=== PATIENT | female | born 1990 | race Caucasian/White ===

== ENCOUNTER → 2021-01-07 10:48 | Outpatient (CLI) | payer BC, SELFPAY ==
--- NOTE | ~2021-01-07 | US_ITS ---
EXAMINATION: US transvaginal DATE: 01/07/2021 11:11 INDICATION: Pelvic and right lower quadrant abdominal pain Comparison:No prior studies for comparison. TECHNIQUE: Multiple transabdominal and endovaginal sonographic images of the pelvis performed. FINDINGS: The uterus measures 7.6 x 3.5 x 5 cm. There is an IUD present in the endometrium. The endom etrial complex measures 5 mm. The right ovary measures 2.5 x 1.8 x 3.2 cm and the left ovary measures 3.2 x 2.1 x 2.5 cm. There ar e small follicles in each ovary.Normal doppler signal in both ovaries. There is no free fluid in the pelvis. There are no abnormal masses seen on either side. IMPRESSION: 1. Normal pelvic ultrasound. Reviewed, dictated and finalized at location B. SUPPORT CONSULTANT
== END ==
PROVIDERS: Visit Provider Nurse Practitioner
DX: R10.2 Pelvic and perineal pain (principal); Z97.5 Presence of (intrauterine) contraceptive device
CPT/HCPCS: 76830

== ENCOUNTER 2022-09-11 08:25 | Emergency (ER) | payer BC, SELFPAY ==
--- NOTE | 2022-09-11 08:44 | ED.URI ---
HPI - URI/Sore Throat General Chief Complaint: Upper Respiratory Infection Stated Complaint: nasal congestion,bilateral ear pain Time Seen by Provider: 09/11/22 08:53 Source: patient and RN notes reviewed Mode of arrival: ambulatory Limitations: no limitations History of Present Illness HPI Narrative: 32-year-old female signs of concern for 2 week history of nasal congestion, cough, runny nose. Reports history of chronic sinusitis. Reports she is taking many [id number] remedies without relief. She reports cough keeps her awake at night. MD elicited complaint: rhinorrhea and nasal congestion Related Data Allergies Allergy/AdvReac Type Severity Reaction Status Date / Time ethinyl estradiol Allergy Intermediate Unknown Verified 10/17/21 13:40 [Seasonale (91)] levonorgestrel Allergy Intermediate Unknown Verified 10/17/21 13:40 [Seasonale (91)] Review of Systems Review of Systems: CONSTITUTIONAL: Reports malaise. Denies chills, sweats, or fever. EYES: Denies visual changes, redness, or discharge. ENT: Reports rhinorrhea, congestion, sinus pain, otalgia and sore throat. CARDIOVASCULAR: Denies chest pain, palpitations, or edema. RESPIRATORY: Reports cough. Denies dyspnea. GASTROINTESTINAL: Denies abdominal pain, nausea, vomiting, diarrhea SKIN: Denies rash or itching. MUSCULOSKELETAL: Denies myalgia. NEUROLOGIC: Denies headache. All systems reviewed & are unremarkable except as noted in HPI and below PMFSH Past Medical History Medical History (Updated 09/11/22 @ 08:57 by Kay Wilkinson NP) Dizziness and giddiness Surgical History Surgical History H/O oral surgery Family History Family History Mother Hypertension Diabetes mellitus Mother Hypertension Family history of type 2 diabetes mellitus Social History Social History Smoking status: Never smoker Alcohol intake: current Alcohol use details: social Substance use: never Substance use type: does not use Additional living arrangements comments: , has 2 children Additional occupation/education comments: stay at home mom Gender identity (if verbalized by the patient): Female Spiritual care concerns: No Comments At time of signature, agree with nursing past medical, surgical, social and family history. There is no relevant family history pertinent to the presenting complaint Exam Narrative: GENERAL: Nontoxic-appearing and in no acute distress. HEAD: Normocephalic EYES: PERRLA, conjunctivae clear ENT: Nares clear, turbinates edematous and erythematous, sinus tenderness. Mucous membranes moist. TM pearly pina with dull light reflex bilaterally; no tragal tenderness. Oropharynx not erythematous without lesions. Tonsils not enlarged and without exudate, no drooling, no hoarseness, no trismus, uvula midline. NECK: Supple. No lymphadenopathy CHEST: Clear to auscultation, breath sounds equal. No wheezing, rhonchi, rales, or stridor. No respiratory distress, speaks in full sentences. HEART: Regular rate and rhythm. No murmur heard. SKIN: Warm, dry, no rash. NEURO: Alert and oriented x3. PSYCH: Normal mood and affect Course Course Emergency Course: Patient is aware of diagnosis, understands and agrees to treatment plan. Anticipatory guidance given. Patient agrees to follow-up as directed and is aware of reasons to seek care at the emergency department. Portions of this record may have been created with voice recognition software Level of Care: Express Care Visit Vital Signs Vital signs: Vital Signs Temperature 98.8 F 09/11/22 08:51 Pulse Rate 85 09/11/22 08:51 Respiratory Rate 12 09/11/22 08:51 Blood Pressure 125/84 09/11/22 08:51 Pulse Oximetry 99 09/11/22 08:51 Oxygen Delivery Room Air 09/11/22 08:51 Temperature 98.8 F
[2022-09-11 08:51] VITALS: BP 125/84; PULSE 85; RESP 12; TEMP 37.1; O2SAT 99
== END 2022-09-11 09:05 | disposition home or self-care (01) ==
PROVIDERS: Emergency Provider Nurse Practitioner; PCP Nurse Practitioner Family
DX: J32.9 Chronic sinusitis, unspecified (principal); J40 Bronchitis, not specified as acute or chronic
CPT/HCPCS: 99213; G0463

== ENCOUNTER 2023-03-25 09:52 | Emergency (ER) | payer BC, SELFPAY ==
[2023-03-25 10:07] VITALS: BP 122/79; PULSE 100; RESP 16; TEMP 36.4; O2SAT 99
--- NOTE | 2023-03-25 10:23 | ED.EAR ---
HPI - Ear Problem General Chief complaint: Ear Stated complaint: rt ear pain Time Seen by Provider: 03/25/23 10:23 Source: patient, RN notes reviewed and old records reviewed Mode of arrival: ambulatory Limitations: no limitations History of Present Illness HPI Narrative: 32 year old female who presents to [facility] with complaints of right ear pain. Patient reports that she has had 3-4 days of nasal congestion and drainage she related to sinus allergies since working in [place] around her home. She reports that last night while at [employer] she felt pop in her right ear with sizzle sound then she could hear her heartbeat in her ear. She reports that she has taken Zyrtec and Aleve for her symptoms. Patient denies any fevers no drainage from her ear or any feelings of dizziness . MD Complaint: ear pain and other (sinus congestion and drainage) Location: right ear Duration: constant Severity: moderate Discharge from ear: Reports no Treatment prior to arrival: other (zyrtec and Aleve) Related Data Allergies Allergy/AdvReac Type Severity Reaction Status Date / Time ethinyl estradiol Allergy Intermediate Unknown Verified 03/25/23 09:57 [Seasonale (91)] levonorgestrel Allergy Intermediate Unknown Verified 03/25/23 09:57 [Seasonale (91)] Review of Systems Review of Systems: CONSTITUTIONAL: Denies malaise, chills, sweats, or fever. EYES: Denies visual changes, redness, or discharge. ENT: Reports rhinorrhea, congestion, sinus pain,right otalgia no sore throat. CARDIOVASCULAR: Denies chest pain, palpitations, or edema. RESPIRATORY: Reports no cough.? Denies dyspnea. GASTROINTESTINAL: Denies abdominal pain, nausea, vomiting, diarrhea SKIN: Denies rash or itching. MUSCULOSKELETAL: Denies myalgia. NEUROLOGIC: Denies headache. All systems reviewed & are unremarkable except as noted in HPI and below PMFSH Past Medical History Medical History (Updated 03/26/23 @ 16:16 by Nadege Corcoran NP) Dizziness and giddiness Surgical History Surgical History H/O oral surgery Family History Family History Mother Hypertension Diabetes mellitus Mother Hypertension Family history of type 2 diabetes mellitus Social History Social History Smoking status: Never smoker Alcohol intake: current Alcohol use details: social Substance use: never Substance use type: does not use Living arrangements: with family Additional living arrangements comments: , has 2 children Additional occupation/education comments: stay at home mom Gender identity (if verbalized by the patient): Female Spiritual care concerns: No Comments At time of signature, agree with nursing past medical, surgical, social and family history. There is no relevant family history pertinent to the presenting complaint Exam Narrative: GENERAL: Well-appearing, well-nourished, and in no acute distress. HEAD: Normocephalic EYES: PERRLA, conjunctivae clear ENT: Nares clear, turbinates edematous and erythematous, clear discharge. Mucous membranes moist. Right TM red, ear canal irritated with blister type of formation in canal. Left TM pearly pina with dull light reflex; no tragal tenderness. Oropharynx erythematous without lesions. Tonsils not enlarged and without exudate, no drooling, no hoarseness, no trismus, uvula midline. NECK: Supple. No lymphadenopathy CHEST: Clear to auscultation, breath sounds equal. No wheezing, rhonchi, rales, or stridor. No respiratory distress, speaks in full sentences.SAO2 99% on room air HEART: Regular rate and rhythm. No murmur heard. SKIN: Warm, dry, no rash. NEURO: Alert and oriented x3. PSYCH: Normal mood and affect Course Course Emergency Course: Patient is aware of diagnosis, understands and agrees to
== END 2023-03-25 10:49 | disposition home or self-care (01) ==
PROVIDERS: Emergency Provider Registered Nurse
DX: H66.91 Otitis media, unspecified, right ear (principal); H60.91 Unspecified otitis externa, right ear; J06.9 Acute upper respiratory infection, unspecified
CPT/HCPCS: 99213; G0463

== ENCOUNTER 2024-03-13 16:46 | Emergency (ER) | payer BC, SELFPAY ==
--- NOTE | 2024-03-13 16:51 | ED.GENADULT ---
HPI - General Adult General Chief complaint: Urogenital-Female Stated complaint: Uti Symptoms Source: patient, RN notes reviewed and old records reviewed Mode of arrival: ambulatory Limitations: no limitations History of Present Illness HPI narrative: 33-year-old female presents to [facility] with complaint frequent urination this started 2-3 days ago, patient states is now having burning with urination and urinary urgency. Patient denies abdominal pain, back pain, fever, nausea, vomiting. Related Data Allergies Allergy/AdvReac Type Severity Reaction Status Date / Time ethinyl estradiol Allergy Intermediate Unknown Verified 04/16/23 11:15 [Seasonale (91)] levonorgestrel Allergy Intermediate Unknown Verified 04/16/23 11:15 [Seasonale (91)] Review of Systems Constitutional: Constitutional: Reports no additional constitutional complaints, Denies body ache(s), Denies chills, Denies fatigue, Denies fever(s) and Denies headache(s) Eyes: Eyes: Reports no additional eye complaints and Denies blurry vision ENT: Reports system reviewed and no additional complaints, except as documented, Denies vertigo, Denies dizziness, Denies ear discharge, Denies otalgia, Denies facial pain, Denies headache(s), Denies nasal congestion, Denies nasal discharge, Denies sinus pain, Denies sinus pressure and Denies sore throat Cardiovascular: Cardiovascular: Reports no additional cardiovascular complaints, Denies chest pain, Denies chest pain at rest, Denies rapid heart rate and Denies dyspnea Respiratory: Respiratory: Reports no additional respiratory complaints, Denies chest congestion, Denies cough, Denies pain on inspiration, Denies pain with cough and Denies dyspnea Gastrointestinal: Gastrointestinal: Denies abdominal pain, Denies diarrhea, Denies nausea and Denies vomiting Genitourinary: Genitourinary: Reports as per HPI, Reports nocturia, Reports dysuria and Reports urinary urgency Integumentary/Breasts: Skin/Breast: Denies rash Neurologic: Reports system reviewed and no additional complaints, except as documented, Denies vertigo, Denies dizziness and Denies headache(s) Endocrine: Endocrine: Denies fatigue PMF Past Medical History Medical History (Updated 03/13/24 @ 17:05 by Liliya Mays APRN) Dizziness and giddiness Surgical History Surgical History H/O oral surgery Family History Family History Mother Hypertension Diabetes mellitus Mother Hypertension Family history of type 2 diabetes mellitus Social History Social History Smoking status: Never smoker Alcohol intake: current Alcohol use details: social Substance use: never Substance use type: does not use Living arrangements: with family Additional living arrangements comments: , has 2 children Additional occupation/education comments: stay at home mom Gender identity (if verbalized by the patient): Female Spiritual care concerns: No Comments At the time of my signature, I reviewed and agree with the nursing past medical, surgical, social, and family history. There is no relevant family history pertinent to the patient complaint. Exam Const: General: cooperative, healthy appearing, no acute distress and well nourished Nutritional Appearance: well nourished Orientation/consciousness: patient oriented x3 Limitations: no limitations HENMT: Head: normal to inspection and normocephalic Ears: external ears normal Face/Nose/Sinus: normal facial exam Face and sinus: normal facial exam Mouth: Yes Normal oral and palatal mucosa present, Yes oropharynx normal and Yes moist mucous membranes Eyes: General: appearance normal, both eyes and all related structures Sclera: sclerae normal Pupils: Equal, round and reactive pupils present Resp: Effort & Inspection: normal
[2024-03-13 17:01] VITALS: BP 130/89; PULSE 93; RESP 16; TEMP 36.9; O2SAT 100
== END 2024-03-13 17:11 | disposition home or self-care (01) ==
PROVIDERS: Emergency Provider Registered Nurse
DX: N30.01 Acute cystitis with hematuria (principal); B96.20 Unspecified Escherichia coli [E. coli] as the cause of diseases classified elsewhere
CPT/HCPCS: 81003; 87077; 87086; 87088; 87186; 99213; G0463

== ENCOUNTER 2024-03-24 16:30 | Emergency (ER) | payer BC, SELFPAY ==
[2024-03-24 16:34] VITALS: BP 127/89; PULSE 99; RESP 16; TEMP 36.7; O2SAT 100
--- NOTE | 2024-03-24 16:43 | ED.FEMALEGU ---
HPI - Female Genitourinary General Chief complaint: Urogenital-Female Stated complaint: Left Kidney Pain Time Seen by Provider: 03/24/24 16:46 Source: patient, RN notes reviewed and old records reviewed Mode of arrival: ambulatory Limitations: no limitations History of Present Illness HPI Narrative: 33-year-old female presents to the [facility] with complaints of left flank pain. Patient states that it started this morning. Tylenol has not helped, Aleve helped a little bit. Reports nausea without vomiting. Recently treated with Macrobid for UTI on the 13 of March. History of kidney stones. No abdominal pain. Denies fevers. Related Data Allergies Allergy/AdvReac Type Severity Reaction Status Date / Time ethinyl estradiol Allergy Intermediate Unknown Verified 03/24/24 17:19 [Seasonale (91)] levonorgestrel Allergy Intermediate Unknown Verified 03/24/24 17:19 [Seasonale (91)] Review of Systems Review of Systems: All systems reviewed & are unremarkable except as noted in HPI and below Constitutional: Constitutional: Reports no additional constitutional complaints Eyes: Eyes: Reports no additional eye complaints ENT: Reports system reviewed and no additional complaints, except as documented Cardiovascular: Cardiovascular: Reports no additional cardiovascular complaints, Denies chest pain and Denies dyspnea Respiratory: Respiratory: Reports no additional respiratory complaints, Denies chest congestion, Denies cough and Denies dyspnea Gastrointestinal: Gastrointestinal: Reports no additional gastrointestinal complaints, Denies abdominal pain, Denies nausea and Denies vomiting Genitourinary: Genitourinary: Reports as per HPI, Denies hematuria and Reports other (Left flank pain) Musculoskeletal: Musculoskeletal: Reports as per HPI and Reports back pain (Left) Integumentary/Breasts: Skin/Breast: Reports system reviewed and no additional complaints, except as docu Neurologic: Reports system reviewed and no additional complaints, except as documented Psychiatric: Psychiatric: Reports no additional psychiatric complaints Allergic/Immunologic: Allergic/Immunologic: Reports no additional allergic/immunologic complaints PMFSH Past Medical History Medical History (Updated 03/24/24 @ 18:17 by Kay Wagner APRN) Dizziness and giddiness Surgical History Surgical History (Updated 03/24/24 @ 17:07 by Kay Wagner APRN) H/O oral surgery Hx of cholecystectomy Family History Family History Mother Hypertension Diabetes mellitus Mother Hypertension Family history of type 2 diabetes mellitus Social History Social History Smoking status: Never smoker Alcohol intake: current Alcohol use details: social Substance use: never Substance use type: does not use Living arrangements: with family Additional living arrangements comments: , has 2 children Additional occupation/education comments: stay at home mom Gender identity (if verbalized by the patient): Female Spiritual care concerns: No Comments At the time of my signature, I reviewed and agree with the nursing past medical, surgical, social, and family history. There is no relevant family history pertinent to the patient complaint. Exam Const: General: cooperative, healthy appearing, no acute distress, well developed, alert, acute distress mild (pain), uncomfortable, well groomed and well nourished Nutritional Appearance: well nourished and overweight Orientation/consciousness: patient oriented x3 Limitations: no limitations HENMT: Head: normal to inspection Ears: hearing grossly normal bilaterally and external ears normal Face/Nose/Sinus: Normal external nose present, Normal nares present, Normal nasal mucous membranes and turbinates present, normal facial exam and face symmetric Face and sinus: normal facia
== END 2024-03-24 16:55 | disposition short-term general hospital (02) ==
LOC: EXPGOSH 16:32
PROVIDERS: Emergency Provider Nurse Practitioner
DX: R10.9 Unspecified abdominal pain (principal)
CPT/HCPCS: 81003; 99212; G0463

== ENCOUNTER 2024-03-24 17:19 | Emergency (ER) | payer BC, SELFPAY ==
--- NOTE | ~2024-03-24 | CT_ITS ---
EXAMINATION: CT abdomen pelvis wo con DATE: 03/24/2024 19:34 INDICATION: L flank pain, hx stones TECHNIQUE: Computed tomography (CT) of the abdomen and pelvis was performed without intravenous contr ast. Automated exposure control and iterative reconstruction technique were employed. The dose-length product was 295.26 mGy-cm. COMPARISON: None. FINDINGS: Lower thorax: Unremarkable Liver: Normal. Biliary/Gallbladder: Gallbladder is absent. No bile duct dilation. Pancreas: No mass or duct dilation. Spleen: Normal. Adrenals:No mass. Kidneys: No suspicious mass, obstructing stone, or hydronephrosis. Punctate nonobstructing right midp ole calcification. GI tract: No small or large bowel dilation. Normal appendix. Mesentery/Peritoneum: Multiple enlarged mesenteric lymph nodes with surrounding fat halos and strandi ng. No free air or free fluid. Retroperitoneum: No mass. Pelvis: IUD, in good position. Normal bilateral ovaries. Partially distended normal appearing urinary bladder.. Soft Tissues: Soft tissues and body wall unremarkable. Bones: No acute osseous finding. IMPRESSION: Mesenteric panniculitis. Reviewed, dictated and finalized at location K. IMPRESSION: Mesenteric panniculitis.
[2024-03-24 17:45] VITALS: BP 119/79; PULSE 94; RESP 18; TEMP 36.6; O2SAT 100
--- NOTE | 2024-03-24 17:47 | ED.BACK ---
HPI - Back Pain/Injury General Chief Complaint: Back Pain/Injury <SHABNAM Levin Last Filed: 03/24/24 17:57> Stated Complaint: flank pain <SHABNAM Levin Last Filed: 03/24/24 17:57> Time Seen by Provider: 03/24/24 17:47 <SHABNAM Levin Last Filed: 03/24/24 17:57> Focused HPI: Patient is a 33 y/o female who presents to the ED with c/o L flank pain. Patient reports she was diagnosed with UTI around 10 days ago and started on Macrobid on 03/13. States this improved her symptoms initially. She developed pain in her L flank region this morning. Dull at first, now sharp. She took Aleve for the pain with some relief. Reports nausea, denies vomiting. Reports urinary frequency. Denies hematuria. She does have history of kidney stones. Went to an urgent care and sent here for further evaluation. Denies fevers. GENERAL: Mildly uncomfortable-appearing, well-nourished, and in no acute distress. HEAD: Normocephalic, atraumatic. CHEST: Clear to auscultation. ?No respiratory distress. HEART: Regular rate and rhythm.? ABD: TTP along L lower/lateral abdomen. No significant CVA tenderness to percussion. NEURO: ?Alert and oriented x3. Patient screened in triage and initial orders placed.? ?Additional care and disposition to be based upon?diagnostic testing and treatment. <SHABNAM Levin Last Filed: 03/24/24 17:57> Source: patient <SHABNAM Levin Last Filed: 03/24/24 17:57> Mode of arrival: ambulatory <SHABNAM Levin Last Filed: 03/24/24 17:57> Limitations: no limitations <SHABNAM Levin Last Filed: 03/24/24 17:57> Related Data Allergies/Adverse Reactions: Allergies Allergy/AdvReac Type Severity Reaction Status Date / Time ethinyl estradiol Allergy Intermediate Unknown Verified 03/24/24 17:19 [Seasonale (91)] levonorgestrel Allergy Intermediate Unknown Verified 03/24/24 17:19 [Seasonale (91)] <Joanne Rojas PA-C - Last Filed: 03/24/24 17:57> Review of Systems Review of Systems: CONSTITUTIONAL: Denies fever GASTROINTESTINAL: Reports abdominal pain, nausea. Denies vomiting, or diarrhea. GENITOURINARY: Denies dysuria or hematuria. <Jessica Oreilly PA-C - Last Filed: 03/25/24 01:33> All systems reviewed & are unremarkable except as noted in HPI and below <Jessica Oreilly PA-C - Last Filed: 03/25/24 01:33> PMFSH Past Medical History Medical History: Medical History (Updated 03/25/24 @ 00:00 by Marleen Poole) Dizziness and giddiness <SHABNAM Levin Last Filed: 03/24/24 17:57> Surgical History Surgical History: Surgical History (Updated 03/24/24 @ 17:07 by Kay Wagner APRN) H/O oral surgery Hx of cholecystectomy <SHABNAM Levin Last Filed: 03/24/24 17:57> Family History Family History: Family History Mother Hypertension Diabetes mellitus Mother Hypertension Family history of type 2 diabetes mellitus <SHABNAM Levin Last Filed: 03/24/24 17:57> Social History Social History: Social History Smoking status: Never smoker Alcohol intake: current Alcohol use details: social Substance use: never Substance use type: does not use Living arrangements: with family Additional living arrangements comments: , has 2 children Additional occupation/education comments: stay at home mom Gender identity (if verbalized by the patient): Female Spiritual care concerns: No <SHABNAM Levin Last Filed: 03/24/24 17:57> Exam Narrative: GENERAL: Well-appearing, well-nourished, and in no acute distress. HEAD: Normocephalic, atraumatic. EYES: EOMI. CHEST: Clear to auscultation. No respiratory distress. No wheezes rales or rhonchi HEART: Regular rate
[2024-03-24] MEDS: ACETAMINOPHEN 500 MG TABLET 1000 MG PO (18:23)
[2024-03-24] MEDS: ONDANSETRON INJ 4 MG/2 ML VIAL IV PUSH (18:23)
[2024-03-24 18:26] LABS: Basophils Absolute Auto 0.1 K/mm3 (0.0-0.1); Basophils Percent Auto 0.6 % (0.2-1.2); Eosinophils Absolute Auto 0.3 K/mm3 (0-0.3); Eosinophils Percent Auto 2.6 % (0-4.4); Hematocrit 40.3 % (37.0-47.0); Immature Granulocyte Absolute 0.02 K/mm3 (0.00-0.031); Immature Granulocyte Percent A 0.2 % (0-0.5); Lymphocytes Absolute Auto 3.72 K/mm3 (0.9-3.2); Lymphocytes Percent Auto 38.5 % (18.3-44.2); Mean Corpuscular HGB Conc 32.3 g/dl (32-36); Mean Corpuscular Hemoglobin 29.2 pg (26-34); Mean Corpuscular Volume 90.6 fl (80-100); Mean Platelet Volume 10.6 fl (7.4-10.4); Monocytes Absolute Auto 0.7 K/mm3 (0.1-0.6); Monocytes Percent Auto 6.9 % (2.6-8.5); Neutrophils Percent Auto 51.2 % (45.5-73.1); Platelet Count Result 270 k/mm3 (150-375); Red Blood Count 4.45 M/mm3 (4.2-5.4); Red Cell Distribution Width 13.2 % (11.5-14.5); White Blood Count 9.7 K/mm3 (4.5-10.0)
[2024-03-24 18:37] LABS: Alanine Aminotransferase 20 U/L (6-35); Albumin Level 4.9 g/dL (3.5-5.1); Alkaline Phosphatase 56 U/L (38-126); Anion Gap 7 mmol/L (4-12); Aspartate Amino Transferase 21 U/L (14-36); Bilirubin,Total 0.5 mg/dL (0.2-1.3); Blood Urea Nitrogen 10 mg/dL (7-17); Calcium 9.3 mg/dL (8.4-10.2); Carbon Dioxide 25 mmol/L (22-30); Chloride 107 mmol/L (98-107); Estimated CRCL calculation 76 ml/min; Estimated Glomerular Filt Rate > 60; Glucose 103 mg/dL (65-110); Lipase 91 U/L (23-300); Potassium 3.9 mmol/L (3.4-5.0); Sodium 139 mmol/L (137-145)
[2024-03-24 18:50] LABS: Appearance Urine Clear (Clear); Bacteria Urine None Seen /hpf; Bilirubin Urine Negative (Negative); Blood Urine Negative (Negative); Color Urine Yellow (Yellow); Glucose Urine UA Negative (Negative); Ketones Urine Trace mg/dL (Negative); Leukocyte Esterase Ur 1+ LEU/UL (Negative); Nitrate Urine Negative (Negative); Non Pathogenic Casts 0-2; Protein Urine Negative (Negative); Specific Grav Ur 1.022 (1.001-1.035); Squamous Epithelial Cell Urine Occasional /hpf (Few)
[2024-03-24 18:58] LABS: Add Urine Microscopic? YES
[2024-03-24] MEDS: SODIUM CHLORIDE 0.9% IV 1,000 ML 999 ML IV CONT (20:52)
--- NOTE | 2024-03-24 20:53 | PC.NURSE ---
Pt reports pain is much better after receiving Tylenol earlier.
[2024-03-24 21:05] VITALS: BP 137/102; PULSE 85; RESP 18; O2SAT 99
[2024-03-24 22:08] VITALS: BP 125/108; PULSE 88; RESP 18; O2SAT 98
== END 2024-03-24 22:09 | disposition home or self-care (01) ==
LOC: ANHED 21:50
PROVIDERS: Physician Assistant; Emergency Provider Physician Assistant
DX: K65.4 Sclerosing mesenteritis (principal); Z90.49 Acquired absence of other specified parts of digestive tract; Z87.440 Personal history of urinary (tract) infections
CPT/HCPCS: 36415; 74176; 80053; 81001; 81003; 81025; 83690; 85025; 87086; 96361; 96374; 99284; A9270; J2405; J7030

== ENCOUNTER 2024-05-01 11:22 | Outpatient (CLI) | payer BC, SELFPAY ==
[2024-05-01 12:43] LABS: CRP < 0.5 mg/dL (0.0-0.9)
[2024-05-01 13:14] LABS: Erythrocyte Sedimentation Rate 7 mm/hr (0-15)
[2024-05-05 06:59] LABS: Immunoglobulin A 314 mg/dL (47-310); TTG IGA AB <1.0 U/mL
== END 2024-05-01 11:23 | disposition home or self-care (01) ==
LOC: CHSLAB 11:24
PROVIDERS: PCP Nurse Practitioner Family; Visit Provider Nurse Practitioner Family
DX: K65.4 Sclerosing mesenteritis (principal); R19.7 Diarrhea, unspecified; R10.9 Unspecified abdominal pain
CPT/HCPCS: 36415; 82784; 83516; 85652; 86140

== ENCOUNTER 2024-06-03 07:42 | Outpatient (CLI) | payer BC, SELFPAY ==
--- NOTE | ~2024-06-03 | CT_ITS ---
CT of the Abdomen and Pelvis: Indication: Sclerosing mesenteritis Technique: 2.5 mm axial scans were obtained through the abdomen and pelvis following intravenous adm inistration of 100 cc of Omnipaque 350. Dose reduction technique was used on this scan by utilizing a utomated exposure control and iterative reconstruction technique. The dose-length product (DLP) was 4 46.07 mGy-cm. COMPARISON: 03/24/2024 Findings: Scans through the lung bases are unremarkable. The liver, spleen, pancreas, adrenals and kidneys are within normal limits. Cholecystectomy clips are present. No evidence of aortic aneurysm. No lymphadenopathy. No bowel obstruction or bowel wall thickening. There is no evidence to suggest acute appendicitis. Th ere is minimal haziness in the central mesentery with small shotty lymph nodes. Images through the pelvis were performed. Urinary bladder unremarkable. No significant adnexal mass s een. IUD in place. No ascites. Impression: Mild mesenteric panniculitis, similar to prior exam. Reviewed, dictated and finalized at location . Impression: Mild mesenteric panniculitis, similar to prior exam.
== END 2024-06-03 07:43 | disposition home or self-care (01) ==
PROVIDERS: PCP Nurse Practitioner Family; Visit Provider Nurse Practitioner Family
DX: K65.4 Sclerosing mesenteritis (principal)
CPT/HCPCS: 74177; Q9967

== ENCOUNTER 2024-06-10 01:24 | Day surgery (SDC) | payer BC, SELFPAY ==
[2024-05-27 14:56] VITALS: BMI 27.4
[2024-06-10 12:27] VITALS: BP 135/91; PULSE 94; RESP 20; TEMP 36.6; O2SAT 98; BMI 26.1
[2024-06-10] MEDS: LACTATED RINGERS 1,000 ML 150 ML IV CONT (12:43)
--- NOTE | 2024-06-10 12:52 | P.PNAN_ITS ---
Anes - Initial Pre Proc Eval Procedure: Operation Date: 06/10/24 13:30 Proposed Procedures p Colonoscopy - Lyle Mota MD Date/Time: 06/10/24 12:52 Surgeon: Lyle Mota MD Pre Op Diagnosis: Abd Distension,Sclerosing Mesenteritis,Diarrhea Patient Data Age: 34 Gender: F Height: 1.57 m Weight: 64.7 kg Last Vital Signs Temp 98 F 06/10/24 12:27 Pulse 94 06/10/24 12:27 Resp 20 06/10/24 12:27 BP 135/91 H 06/10/24 12:27 Pulse Ox 98 06/10/24 12:27 O2 Del Method Room Air 06/10/24 12:27 Allergies Allergy/AdvReac Type Severity Reaction Status Date / Time ethinyl estradiol Allergy Intermediate Unknown Verified 06/10/24 12:26 [Seasonale (91)] levonorgestrel Allergy Intermediate Unknown Verified 06/10/24 12:26 [Seasonale (91)] Home Medications Medication Instructions Recorded Confirmed Type cholestyramine (with sugar) 4 gram See Rx Instructions .Route 05/30/24 06/10/24 Rx oral powder .COMPLEX #378 grams Patient hx anesthesia problems: none Family hx anesthesia problems: none Results Review: All pre-operative results and documents have been reviewed as part of the pre- operative evaluation. [facility] Past Medical History Medical History Diarrhea Dizziness and giddiness Surgical History Surgical History H/O oral surgery Hx of cholecystectomy Family History Family History Mother Hypertension Diabetes mellitus Mother Hypertension Family history of type 2 diabetes mellitus Social History Social History Smoking status: Never smoker Alcohol intake: current Alcohol use details: social Substance use: never Substance use type: does not use Living arrangements: with family Additional living arrangements comments: , has 2 children Additional occupation/education comments: stay at home mom Gender identity (if verbalized by the patient): Female Spiritual care concerns: No Anes - Eval Final PreProcedure Day of Procedure 06/10/24 12:52 Patient weight: normal Heart: regular rate and rhythm Lungs: clear to auscultation Airway: Mallampati scale Neurological: alert and oriented Last oral intake: >/= 8 hours ASA classification: I Emergent: no Anesthetic plan: proceed Anesthesia type and monitoring: general GIVS and standard monitoring Results Review: All pre-operative results and documents have been reviewed as part of the pre- operative evaluation. Informed Consent: The patient's anesthetic plan and its attendant risks and benefits were discussed with the patient/family/POA. Questions were solicited and answers provided to the satisfaction of the patient/family/POA.
--- NOTE | 2024-06-10 13:15 | PM.HPGS ---
History of Present Illness History of Present Illness Consent: Risks, benefits, and alternatives have been discussed and questions answered. Patient agrees to proceed with procedure. Chief complaint: Abd Distension, Diarrhea Narrative: Nora Styles is a 34 year old female here for first colonoscopy, irregular BM since had cholecystectomy about 9 years ago, also abdominal discomfort, CT scan showed possible mesenteric panniculitis Review of Systems Review of Systems: All systems reviewed & are unremarkable except as noted in HPI and below PMFSH Past Medical History Medical History Diarrhea Dizziness and giddiness Surgical History Surgical History H/O oral surgery Hx of cholecystectomy Family History Family History Mother Hypertension Diabetes mellitus Mother Hypertension Family history of type 2 diabetes mellitus Social History Social History Smoking status: Never smoker Alcohol intake: current Alcohol use details: social Substance use: never Substance use type: does not use Living arrangements: with family Additional living arrangements comments: , has 2 children Additional occupation/education comments: stay at home mom Gender identity (if verbalized by the patient): Female Spiritual care concerns: No Meds Home Medications and Allergies Home Medications Medication Instructions Recorded Confirmed Type cholestyramine (with sugar) 4 gram See Rx Instructions .Route 05/30/24 06/10/24 Rx oral powder .COMPLEX #378 grams Allergies Allergy/AdvReac Type Severity Reaction Status Date / Time ethinyl estradiol Allergy Intermediate Unknown Verified 06/10/24 12:26 [Seasonale (91)] levonorgestrel Allergy Intermediate Unknown Verified 06/10/24 12:26 [Seasonale (91)] Vital Signs Vital Signs - 24 hr 06/10/24 12:27 Temperature 98 F Pulse Rate 94 Respiratory Rate 20 Blood Pressure 135/91 H Pulse Oximetry 98 Oxygen Delivery Room Air Exam Const: General: comfortable and no acute distress HENMT: Face/Nose/Sinus: Normal nares present Eyes: General: appearance normal, both eyes and all related structures Neck: Neck: no JVD Resp: Auscultation: clear to auscultation bilaterally Cardio: Rate: regular rate Rhythm: regular rhythm GI: Inspection: non-distended GI Palp: Yes Soft to palpation Skin: General skin exam: normal color Neuro: General: gait normal Speech: normal speech Extrem: General: normal to inspection Psych: Mental Status: mental status grossly normal Assessment and Plan Assessment and plan (1) Diarrhea: Code(s): R19.7 - Diarrhea, unspecified Status: Acute Assessment and Plan: colonoscopy (2) Bloating: Code(s): R14.0 - Abdominal distension (gaseous) Status: Acute
[2024-06-10 13:30] VITALS: BP 120/78; PULSE 77; RESP 20; O2SAT 98
[2024-06-10 13:40] VITALS: BP 111/79; PULSE 84; RESP 20; O2SAT 99
[2024-06-10 13:50] VITALS: BP 123/87; PULSE 82; RESP 20; O2SAT 100
== END 2024-06-10 13:56 | disposition home or self-care (01) ==
PROVIDERS: PCP Nurse Practitioner Family; Referring Provider Nurse Practitioner Family; Visit Provider Internal Medicine Gastroenterology
PROC: 0DJD8ZZ Inspection of Lower Intestinal Tract, Via Natural or Artificial Opening Endoscopic (ICD-10-PCS; CPT 45378; principal; 2024-06-10 13:30)
DX: D12.2 Benign neoplasm of ascending colon (principal); K63.89 Other specified diseases of intestine
CPT/HCPCS: 45380; 88305; J2704; J7120

== ENCOUNTER 2024-10-23 20:41 | Emergency (ER) | payer BC, SELFPAY ==
--- NOTE | ~2024-10-23 | CT_ITS ---
CT abdomen pelvis wo con Ordering provider: Hema Fleming DO History: 34 years Female with . LT flank, pelvic pain w/ urination/urgency X 2days, worse . Comparison: June 03, 2024 Technique: CT abdomen and pelvis with IV and without oral contrast. Automated exposure control and it erative reconstruction technique were employed. The dose-length product was 326.71 mGy-cm. Findings: VISUALIZED LOWER CHEST: Normal. UPPER ABDOMINAL ORGANS: Liver: Normal. Gallbladder: Status post cholecystectomy. Spleen: Normal. Stomach/duodenum: Normal. Pancreas: Normal. Adrenals: Normal. Kidneys: Tiny stone in the right kidney lower pole. PELVIC ORGANS: The bladder is underfilled. Slightly thickened wall is noted. Uterus: Normal. IUD is n oted. BOWEL AND MESENTERY: Colon: No evidence of diverticulitis. Fecal material seen in the right side of the colon which may in dicate constipation. Normal appendix. Small Bowel: Normal. No obstruction. Peritoneum/mesentery: No free air or free fluid. No mesenteric lymphadenopathy. Panniculitis is seen in the upper mesentery. RETROPERITONEUM: Normal aorta. No retroperitoneal lymphadenopathy. MUSCULOSKELETAL: Superficial soft tissues: The superficial soft tissues are normal. Bones: Normal spine. IMPRESSION: 1. Tiny stone in the right kidney lower pole. 2. Underfilled urinary bladder with slightly thickened wall. Cystitis is not excluded. Clinical raul elation advised. 3. Constipation. 4. Panniculitis unchanged from previous examination. Reviewed, dictated and finalized at [facility] IMPRESSION: 1. Tiny stone in the right kidney lower pole. 2. Underfilled urinary bladder with slightly thickened wall. Cystitis is not e xcluded. Clinical correlation advised. 3. Constipation. 4. Panniculitis unchanged from previous examination.
[2024-10-23 20:45] VITALS: BP 160/101; PULSE 99; RESP 18; TEMP 36.9; O2SAT 100
--- NOTE | 2024-10-23 20:46 | ED_ITS ---
HPI - General Adult General Chief complaint: Urogenital-Female Stated complaint: urogenital female Time Seen by Provider: 10/23/24 20:45 History of Present Illness HPI narrative: Nora is a 34F with a PMH of kidney stones that presented to the ED with a couple days of left flank pain, suprapubic pain, burning and now some hematuria. Symptoms are better with standing and movement. No fevers, N/V or systemic symptoms noted. Related Data Allergies Allergy/AdvReac Type Severity Reaction Status Date / Time ethinyl estradiol Allergy Intermediate Unknown Verified 10/23/24 20:44 [Seasonale (91)] levonorgestrel Allergy Intermediate Unknown Verified 10/23/24 20:44 [Seasonale (91)] Review of Systems Review of Systems: All systems reviewed & are unremarkable except as noted in HPI and below PMFSH Past Medical History Medical History Diarrhea Dizziness and giddiness H/O irritable bowel syndrome Mesenteric panniculitis Surgical History Surgical History H/O oral surgery Hx of cholecystectomy Family History Family History Mother Hypertension Diabetes mellitus Mother Hypertension Family history of type 2 diabetes mellitus Social History Social History Smoking status: Never smoker Alcohol intake: current Alcohol use details: social Substance use: never Substance use type: does not use Living arrangements: with family Additional living arrangements comments: , has 2 children Additional occupation/education comments: stay at home mom Gender identity (if verbalized by the patient): Female Spiritual care concerns: No Exam Const: General: cooperative, healthy appearing, comfortable, no acute distress, well developed, alert, awake and Physically active Orientation/consciousness: oriented to person, oriented to place and oriented to time HENMT: Head: normal to inspection, normocephalic and atraumatic Ears: h earing grossly normal bilaterally and external ears normal Face/Nose/Sinus: Normal external nose present Eyes: General: appearance normal, both eyes and all related structures Periorbital: periorbital findings normal Sclera: sclerae normal Pupils: Equal, round and reactive pupils present Neck: Neck: normal visual inspection Chest: Chest palpation & inspection: normal inspection of the chest Resp: Effort & Inspection: normal respiratory effort, able to speak in complete sentences and no respiratory distress Auscultation: clear to auscultation bilaterally Cardio: Jugular venous distension: no JVD Rate: regular rate Rhythm: regular rhythm GI: Inspection: normal to inspection GI Palp: Yes Soft to palpation Auscultation: normal bowel sounds : Other: Left flank and supra pubic area is TTP Skin: General skin exam: normal color and no rashes or lesions noted Neuro: General: oriented to person, oriented to place and oriented to time Cranial nerves: Yes Equal, round and reactive pupils present Extrem: General: normal to inspection Course Course Emergency Course: Ordered Toradol and labs She has leukocytosis, nitrites, hematuria with left flank pain. given this she likely has pyelonephritis vs infected stone so imaging was ordered as well as ceftriaxone. CT abdomen pelvis wo con Ordering provider: Hema Fleming DO History: 34 years Female with . LT flank, pelvic pain w/ urination/urgency X 2days, worse . Comparison: June 03, 2024 Technique: CT abdomen and pelvis with IV and without oral contrast. Automated exposure control and iterative reconstruction technique were employed. The dose- length product was 326.71 mGy-cm. Findings: VISUALIZED LOWER CHEST: Normal. UPPER ABDOMINAL ORGANS: Liver: Normal. Gallbladder: Status post cholecystectomy. Spleen: Normal. Stomach/duodenum: Normal. Pancreas: Normal. Adrenals: Normal. Kidneys: Tiny stone in the right kidney lower pole. PELVIC ORGANS: The bladder is underfilled. Slightly thickened wall is noted. Uterus: Normal. IUD is noted. BOWEL AND MESENTERY: Colon: No evidence of diverticulitis. Fecal material seen in the right side of the colon which may indicate constipation. Normal appendix. Small Bowel: Normal. No obstruction. Peritoneum/mesentery: No free air or free fluid. No mesenteric lymphadenopathy. Panniculitis is seen in the upper mesentery. RETROPERITONEUM: Normal aorta. No retroperitoneal lymphadenopathy. MUSCULOSKELETAL: Superficial soft tissues: The superficial soft tissues are normal. Bones: Normal spine. IMPRESSION: 1. Tiny stone in the right kidney lower pole. 2. Underfilled urinary bladder with slightly thickened wall. Cystitis is not excluded. Clinical correlation advised. 3. Constipation. 4. Panniculitis unchanged from previous examination. Labs showed leukocytosis but chemistries were unremarkable. She does have a tiny stone on the right but her pain is on the left side so it is unlikely that this and infected stone. Will treat with bactrim. She was instructed to return for any new concerning or worsening symptoms. Vital Signs Vital signs: Vital Signs Oxygen Delivery Room Air 10/23/24 20:41 Temperature 98.4 F 10/23/24 20:45 Pulse Rate 99 10/23/24 20:45 Respiratory Rate 18 10/23/24 20:45 Blood Pressure 160/101 H 10/23/24 20:45 Pulse Oximetry 100 10/23/24 20:45 Oxygen Delivery Room Air 10/23/24 20:45 Medical Decision Making Vital Signs Vital Signs: Vital Signs Oxygen Delivery Room Air 10/23/24 20:41 Temperature 98.4 F 10/23/24 20:45 Pulse Rate 99 10/23/24 20:45 Respiratory Rate 18 10/23/24 20:45 Blood Pressure 160/101 H 10/23/24 20:45 Pulse Oximetry 100 10/23/24 20:45 Oxygen Delivery Room Air 10/23/24 20:45 Lab Data 10/23/24 20:55 10/23/24 20:55 Labs: Lab Results 10/23/24 10/23/24 Range/Units 20:49 20:55 WBC 15.3 H (4.8-10.8) K/mm3 RBC 4.19 L (4.20-5.40) M/mm3 Hgb 12.3 (12.0-15.0) g/dL Hct 36.7 (35.0-49.0) % MCV 87.6 (78.0-102.0) fL MCH 29.4 (27.0-31.0) pg MCHC 33.5 (32-36) g/dL RDW 13.2 (11.6-14.4) % Plt Count 287 (150-420) K/mm3 MPV 9.9 (9.2-11.8) fl Immature Gran % (Auto) 0.5 H (0.0-0.0) % Neut % (Auto) 62.0 (50.0-70.0) % Lymph % (Auto) 27.4 (18.0-42.0) % [place] % (Auto) 7.6 (2.0-11.0) % Eos % (Auto) 2.0 (1.0-6.0) % Baso % (Auto) 0.5 (0.0-1.0) % Lymph # (Auto) 4.19 (1.10-4.50) K/mm3 [place] # (Auto) 1.17 H (0.10-0.90) K/mm3 Eos # (Auto) 0.30 (0.02-0.50) K/mm3 Baso # (Auto) 0.08 (0.00-0.10) K/mm3 Abs Immat Gran (auto) 0.07 H (0.00-0.00) K/mm3 Absolute Neuts (auto) 9.49 H (1.70-7.20) K/mm3 Absolute Nucleated RBC 0.00 (0.00-0.00) K/mm3 Nucleated RBC % 0.0 (0-0.0) % Sodium 138 (136-145) mmol/L Potassium 3.8 (3.5-5.1) mmol/L Chloride 101 (98-108) mmol/L Carbon Dioxide 27 (21-32) mmol/L Anion Gap 10 (4-12) mmol/L BUN 11 (7-18) mg/dL Creatinine 0.70 (0.55-1.02) mg/dL Estim Creat Clear Calc 86 ml/min Estimated GFR > 60 (59 - ) Glucose 99 (70-99) mg/dL Calculated Osmolality 285 (285-295) mOsm/kg Calcium 9.1 (8.5-10.1) mg/dL Total Bilirubin 0.6 (0.00-1.00) mg/dL AST 17 (15-37) U/L ALT 40 (14-59) U/L Alkaline Phosphatase 82 (46-116) U/L Total Protein 7.9 (6.4-8.2) g/dL Albumin 4.2 (3.4-5.0) g/dL Urine Color Brown A (Yellow) Urine Appearance Clear (Clear) Urine pH 6.0 (5.0-8.0) Ur Specific [place] 1.025 H (1.010-1.020) Urine Protein 3+ H (Negative) Urine Glucose (UA) Negative (Negative) Urine Ketones Negative (Negative) Ur Blood (Man) 3+ H (Negative) Urine Nitrate Positive H (Negative) Urine Bilirubin Negative (Negative) Urine Urobilinogen 0.2 (0.2-1.0) mg/dL Leukocyte Esterase Rfl 2+ H (Negative) KIMBERLEE/UL Urine RBC >75 H (0-2) /hpf Urine WBC >75 H (0-3) /hpf Ur Squamous Epith Cells None seen (Few) /hpf Urine Bacteria 3+ H (None) /hpf Urine Test Negative Discharge Plan Discharge Clinical Impression: UTI (urinary tract infection) Patient Disposition: Home, Self-Care Condition: Stable Instructions: Dysuria (ED) Prescriptions: New sulfamethoxazole-trimethoprim [Bactrim DS] 800-160 mg tablet 1 tablet PO Q12H Qty: 10 0RF Follow-up/Referrals: Teresita Perdomo NP [Primary Care Provider] -
[2024-10-23 20:58] LABS: Basophils Absolute Auto 0.08 K/mm3 (0.00-0.10); Basophils Percent Auto 0.5 % (0.0-1.0); Hematocrit 36.7 % (35.0-49.0); Hemoglobin 12.3 g/dL (12.0-15.0); Immature Granulocyte Absolute 0.07 K/mm3 (0.00-0.00); Immature Granulocyte Percent A 0.5 % (0.0-0.0); Lymphocytes Absolute Auto 4.19 K/mm3 (1.10-4.50); Lymphocytes Percent Auto 27.4 % (18.0-42.0); Mean Corpuscular HGB Conc 33.5 g/dL (32-36); Mean Corpuscular Hemoglobin 29.4 pg (27.0-31.0); Mean Corpuscular Volume 87.6 fL (78.0-102.0); Mean Platelet Volume 9.9 fl (9.2-11.8); Monocytes Absolute Auto 1.17 K/mm3 (0.10-0.90); Monocytes Percent Auto 7.6 % (2.0-11.0); Neutrophils Absolute Auto 9.49 K/mm3 (1.70-7.20); Platelet Count Result 287 K/mm3 (150-420); Red Blood Count 4.19 M/mm3 (4.20-5.40); Red Cell Distribution Width 13.2 % (11.6-14.4); White Blood Count 15.3 K/mm3 (4.8-10.8)
[2024-10-23 21:05] LABS: Add Urine Microscopic? YES; Appearance Urine Clear (Clear); Bilirubin Urine Negative (Negative); Blood Urine 3+ (Negative); Color Urine Brown (Yellow); Glucose Urine UA Negative (Negative); Ketones Urine Negative (Negative); Leukocyte Esterase Ur 2+ LEU/UL (Negative); Nitrate Urine Positive (Negative); Protein Urine 3+ (Negative); Specific Grav Ur 1.025 (1.010-1.020); Urobilinogen Urine 0.2 mg/dL (0.2-1.0)
[2024-10-23 21:06] LABS: Pregnancy On Board Control Positive; Urine Pregnancy Test Negative
[2024-10-23 21:09] LABS: RBC Urine >75 /hpf (0-2)
[2024-10-23] MEDS: KETOROLAC 15 MG/ML VIAL (*BKC) IV PUSH (21:09)
[2024-10-23 21:10] LABS: Bacteria Urine 3+ /hpf; Squamous Epithelial Cell Urine None seen /hpf (Few); WBC Urine >75 /hpf (0-3)
[2024-10-23 21:14] LABS: Alanine Aminotransferase 40 U/L (14-59); Albumin Level 4.2 g/dL (3.4-5.0); Alkaline Phosphatase 82 U/L (46-116); Anion Gap 10 mmol/L (4-12); Aspartate Amino Transferase 17 U/L (15-37); Bilirubin,Total 0.6 mg/dL (0.00-1.00); Blood Urea Nitrogen 11 mg/dL (7-18); Calcium 9.1 mg/dL (8.5-10.1); Carbon Dioxide 27 mmol/L (21-32); Chloride 101 mmol/L (98-108); Estimated CRCL calculation 86 ml/min; Estimated Glomerular Filt Rate > 60; Glucose 99 mg/dL (70-99); Osmolality Calculated 285 mOsm/kg (285-295); Potassium 3.8 mmol/L (3.5-5.1); Sodium 138 mmol/L (136-145); Total Protein 7.9 g/dL (6.4-8.2)
[2024-10-23] MEDS: cefTRIAXone 2 GM/NS 100 ML 2 GM/100 ML BAG IVPB (21:34)
[2024-10-23 22:15] VITALS: BP 115/78; PULSE 94; RESP 16; TEMP 36.9; O2SAT 99
--- NOTE | 2024-10-26 12:09 | PC.NURSE ---
final urine culture report reviewed. Ecoli isolated...sensitive to bactrim ds. pt prescribed bactrim ds. no change in plan of care.
== END 2024-10-23 22:15 | disposition home or self-care (01) ==
PROVIDERS: Emergency Provider Family Medicine; PCP Nurse Practitioner Family
DX: N39.0 Urinary tract infection, site not specified (principal)
CPT/HCPCS: 36415; 74176; 80053; 81001; 81025; 85025; 87077; 87086; 87088; 87186; 96365; 96375; 99284; J0696; J1885